=== PATIENT | male | born 1990 | race Caucasian/White ===

== ENCOUNTER 2018-05-03 16:16 | Emergency (ER) | payer OTHER ==
[~2018-05-03] VITALS: Ht 167.6 cm; Wt 71.3 kg
[2018-05-03 16:24] VITALS: BP 125/64
--- NOTE | 2018-05-03 16:27 | NUR ---
Patient ambulated to bed 9. RN evaluating patient at bedside.
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
--- NOTE | 2018-05-03 17:07 | NUR ---
Patient taken to XRAY via wheelchair by tech.
[2018-05-03 17:33] VITALS: BP 124/63
== END 2018-05-03 17:32 | disposition home or self-care (01) ==
LOC: MED 16:16
DX: S13.9XXA Sprain of joints and ligaments of unspecified parts of neck, initial encounter (principal); S29.012A Strain of muscle and tendon of back wall of thorax, initial encounter; V49.60XA Unspecified car occupant injured in collision with unspecified motor vehicles in traffic accident, initial encounter; Y93.89 Activity, other specified; Y92.481 Parking lot as the place of occurrence of the external cause; Y99.8 Other external cause status
CPT/HCPCS: 71046; 72050; 99284

== ENCOUNTER 2022-01-22 09:05 | Emergency (ER) | payer OTHER ==
[~2022-01-22] VITALS: Ht 167.6 cm; Wt 73.3 kg
[2022-01-22 09:07] VITALS: BP 124/75
--- NOTE | 2022-01-22 09:30 | NUR ---
31/M PRESENTS TO ED WITH C/O EPIGASTRIC PAIN AND NAUSEA SINCE LAST NIGHT. PATIENT REPORTS 4/10 "BURNING" LIKE PAIN, DENIES TAKING MEDICATION FOR PAIN OR NAUSEA. PATIENT DENIES V/D, URINARY SYMPTOMS OR CP.
[2022-01-22] MEDS ORDERED: FAMO-92 PO (09:43)
[2022-01-22 09:50] VITALS: BP 124/75
--- NOTE | 2022-01-22 09:50 | NUR ---
Patient discharged with v/s stable. Written and verbal after care instructions ABOUT GASTRITIS AND FOOD POISONING given and explained. Patient alert, oriented and verbalized understanding of instructions. Ambulatory with steady gait. All questions addressed prior to discharge. ID band removed. Patient advised to follow up with PMD. Rx of PEPCID given. Patient educated on indication of medication including possible reaction and side effects. Opportunity to ask questions provided and answered.
== END 2022-01-22 09:50 | disposition home or self-care (01) ==
LOC: MED 09:05
DX: A05.9 Bacterial foodborne intoxication, unspecified (principal); K29.70 Gastritis, unspecified, without bleeding; Z79.899 Other long term (current) drug therapy
CPT/HCPCS: 99283